=== PATIENT | male | born 2000 | race Caucasian/White ===

== ENCOUNTER 2024-06-27 23:00 | Emergency (ER) | payer BC ==
[2024-06-28] MEDS: cefTRIAXone 2 GM in Sodium Chloride 0.9% 50 ML IV ONE (00:58)
[2024-06-28] MEDS: Sodium Chloride 0.9% 1,000 ML IV ONE (01:07)
[2024-06-28 01:21] LABS: BASOPHILS ABSOLUTE AUTO 0.05 K/uL (0.00-0.20); BASOPHILS PERCENT AUTO 0.3 % (0.0-1.0); EOSINOPHILS ABSOLUTE AUTO 0.01 K/uL (0.00-0.45); EOSINOPHILS PERCENT AUTO 0.1 % (0.0-6.0); HEMATOCRIT 45.7 % (42.0-52.0); HEMOGLOBIN 16.1 g/dL (14.0-18.0); IMMATURE GRAN ABSOLUTE AUTO 0.05 K/uL (0.00-0.05); IMMATURE GRAN PERCENT AUTO 0.3 % (0.0-0.4); LYMPHOCYTES ABSOLUTE AUTO 2.24 K/uL (1.00-4.80); LYMPHOCYTES PERCENT AUTO 13.2 % (24.0-44.0); MEAN CORPUSCULAR HEMOGLOBIN 30.7 pg (28.0-32.0); MEAN CORPUSCULAR HGB CONC 35.2 g/dL (32.0-36.0); MEAN CORPUSCULAR VOLUME 87.2 fL (83.0-99.0); MEAN PLATELET VOLUME 8.6 fL (9.4-12.4); MONOCYTES PERCENT AUTO 8.9 % (0.0-8.0); NEUTROPHILS ABSOLUTE AUTO 13.06 K/uL (1.80-7.70); NEUTROPHILS PERCENT AUTO 77.2 % (41.0-71.0); PLATELET COUNT,PLT 327 K/uL (150-400); RED BLOOD CELL COUNT 5.24 M/uL (4.52-5.90); WHITE BLOOD CELL COUNT,WBC 16.91 K/uL (3.9-11.3)
[2024-06-28 01:33] LABS: INR 1.11 (0.86-1.11); PTT,PARTIAL THROMBOPLSTIN TIME 28.4 SEC (23.9-30.7)
[2024-06-28 01:39] LABS: A/G RATIO 0.8 (0.9-1.6); ALBUMIN 3.6 g/dL (3.4-5.0); BILIRUBIN DIRECT 0.3 mg/dL (0.0-0.5); BILIRUBIN INDIRECT 1.5; BILIRUBIN TOTAL 1.8 mg/dL (0.2-1.0); CALCIUM 9.5 mg/dL (8.5-10.1); CARBON DIOXIDE,CO2 27.8 mmol/L (21.0-32.0); CREATININE 1.1 mg/dL (0.8-1.3); EST CRCL DRUG DOSING (CG) 111.83 mL/min; PROTEIN TOTAL,TP 8.3 g/dL (6.4-8.2)
[2024-06-28 01:54] LABS: POTASSIUM,K 4.2 mmol/L (3.5-5.1)
[2024-06-28] MEDS: HYDROmorphone 0.5 MG/0.5 ML Syringe IVPUSH ONE (02:39)
[2024-06-28] MEDS: Ketorolac 30 MG/ML SDV IVPUSH ONE (03:46)
[2024-06-28] MEDS: Clindamycin Phosphate in D5W 600 MG in Premix Bag 1 BAG IV ONE (05:09)
== END 2024-06-28 07:00 | disposition home or self-care (01) ==
LOC: MW.ED 23:00
DX: J36 Peritonsillar abscess (principal); Z88.0 Allergy status to penicillin; Z91.018 Allergy to other foods; Z75.8 Other problems related to medical facilities and other health care
CPT/HCPCS: 36415; 80048; 80076; 85025; 85610; 85730; 87428-QW; 87651-QW; 96361; 96365; 96367; 96375; 99284-25; J0696; J0736; J1100; J1885; J3490; J7030